=== PATIENT | female | born 2000 | race Caucasian/White ===

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

== ENCOUNTER → 2018-08-20 11:53 | Day surgery (SDC) | payer BC, MEDICAID ==
[~2018-08-20 11:53] MED LIST: Buffered Lidocaine 1% SYRIN* 1 ML/SYRINGE INTRADERM ONE; Famotidine IV* 10 MG/ML 2 ML (20 mg) IV ONE; Famotidine IV* 10 MG/ML 2 ML (20 mg) ONE; KETAMINE HCL* 50 MG/ML 10 ML VIAL ONE; Lactated Ringers 1000 ML Bag* 1,000 ML IV SCH; Lidocaine 2% PF * 5 ML VIAL ONE; Midazolam* 1 MG/ML 2 ML VIAL (2 MG) ONE; Naloxone* 0.4 MG/ML 1 ML VIAL IV PRN; Ondansetron INJ* 2 MG/ML VIAL IV PRN; Propofol* 1,000 MG/100 ML BTL ONE; Propofol* 10 MG/ML 20 ML BTL ONE; Rocuronium* 10 MG/ML VIAL ONE; Succinylcholine* 20 MG/ML 10 ML VIAL ONE; Sugammadex * 500 MG/5 ML VIAL IV PUSH ONE
[2018-08-20 16:04] VITALS: BP 131/73
== END | disposition home or self-care (01) ==
LOC: EDSTATUS 08-15 08:00 → OR 11:53
PROVIDERS: ATTEND Radiology Diagnostic Radiology
DX: Z43.1 Encounter for attention to gastrostomy (principal); F84.2 Rett's syndrome; K31.84 Gastroparesis; F41.9 Anxiety disorder, unspecified; G82.50 Quadriplegia, unspecified
CPT/HCPCS: 36415; 49440; 49446; 84702; C1769; J0330; J2250; J2704; Q9967

== ENCOUNTER → 2018-11-20 11:33 | Day surgery (SDC) | payer BC, MEDICAID ==
[~2018-11-20 11:33] MED LIST changes: -Famotidine IV* 10 MG/ML 2 ML (20 mg) IV ONE; -Famotidine IV* 10 MG/ML 2 ML (20 mg) ONE; +Iohexol 300* (CONTRAST) 10 ML SDV ONE; -Ondansetron INJ* 2 MG/ML VIAL IV PRN; -Propofol* 1,000 MG/100 ML BTL ONE; -Succinylcholine* 20 MG/ML 10 ML VIAL ONE; -Sugammadex * 500 MG/5 ML VIAL IV PUSH ONE; +fentaNYL* 50 MCG/ML 2 ML VIAL (100 MCG VIAL) ONE
[2018-11-20 14:42] VITALS: BP 119/62
== END | disposition home or self-care (01) ==
LOC: OR 11:33
PROVIDERS: ATTEND Radiology Diagnostic Radiology
DX: Z43.1 Encounter for attention to gastrostomy (principal); F84.2 Rett's syndrome; K21.9 Gastro-esophageal reflux disease without esophagitis; G82.50 Quadriplegia, unspecified; G40.909 Epilepsy, unspecified, not intractable, without status epilepticus
CPT/HCPCS: 49452; J2250; J2704; J3010; Q9965; Q9967

== ENCOUNTER 2019-01-01 12:20 | Day surgery (SDC) | payer BC, MEDICAID ==
[~2019-01-01 12:20] MED LIST changes: -Iohexol 300* (CONTRAST) 10 ML SDV ONE; -KETAMINE HCL* 50 MG/ML 10 ML VIAL ONE; -Lidocaine 2% PF * 5 ML VIAL ONE; -Midazolam* 1 MG/ML 2 ML VIAL (2 MG) ONE; -Naloxone* 0.4 MG/ML 1 ML VIAL IV PRN; -Propofol* 10 MG/ML 20 ML BTL ONE; -Rocuronium* 10 MG/ML VIAL ONE; -fentaNYL* 50 MCG/ML 2 ML VIAL (100 MCG VIAL) ONE
[2019-01-01] MEDS ORDERED: Buffered Lidocaine 1% SYRIN* 1 ML/SYRINGE INTRADERM ONE (13:24)
[2019-01-01] MEDS ORDERED: Succinylcholine* 20 MG/ML 10 ML VIAL ONE (13:39)
[2019-01-01] MEDS ORDERED: Rocuronium* 10 MG/ML VIAL ONE (13:39)
[2019-01-01] MEDS ORDERED: fentaNYL* 50 MCG/ML 2 ML VIAL (100 MCG VIAL) ONE (13:39)
[2019-01-01] MEDS ORDERED: Propofol* 10 MG/ML 20 ML BTL ONE (13:39)
[2019-01-01] MEDS ORDERED: Midazolam* 1 MG/ML 2 ML VIAL (2 MG) ONE (13:39)
[2019-01-01] MEDS ORDERED: Propofol* 500 MG/50 ML BTL ONE (13:40)
[2019-01-01] MEDS ORDERED: Ondansetron INJ* 2 MG/ML VIAL IV PRN (16:19)
[2019-01-01] MEDS ORDERED: fentaNYL* 50 MCG/ML 2 ML VIAL (100 MCG VIAL) IV PRN (16:19)
[2019-01-01] MEDS ORDERED: Naloxone* 0.4 MG/ML 1 ML VIAL IV PRN (16:19)
[2019-01-01 16:59] VITALS: BP 132/82
== END 2019-01-01 17:04 | disposition home or self-care (01) ==
LOC: OR 12:20
PROVIDERS: ATTEND Radiology Diagnostic Radiology
DX: Z43.1 Encounter for attention to gastrostomy (principal); F84.2 Rett's syndrome; R13.10 Dysphagia, unspecified; G24.8 Other dystonia
CPT/HCPCS: 49452; C1769; J0330; J2250; J2704; J3010; Q9967

== ENCOUNTER 2019-01-30 17:31 | Emergency (ER) | payer BC, MEDICAID ==
--- OUTSIDE RECORDS SUMMARY | 2019-01-30 17:59 | XMS REPORT | Continuity of Care Document ---
:2000 External Reference #:[id number] Author Name Bright Schreiber M.D. Address [address] [address] Care Team Providers Name Role Phone Lay Loza M.D. Primary Care Physician Unavailable Payers Date Identification Numbers Payment Provider Subscriber Policy Number: [id number] [place] molly Butler PayID: [id number] [address] [place] [address] Policy Number: [id number] Medicaid/I Porfirio Butler Group Name: 1 2 Insurance Primary PayID: [id number] [address] [place] [address] Problems Active Problems Provider Date Chronic otitis externa Bright Schreiber M.D. Onset: 12/08/2015 Family History Date Family Member(s) Observation Comments General Allergies General Asthma General Migraine Social History Type Date Description Comments Sex Unknown Tobacco Use Start: Unknown Patient has never smoked Smoking Status Reviewed: 01/13/19 Patient has never smoked Free Text Home is smoke free Allergies, Adverse Reactions, Alerts Active Allergies Reaction Severity Comments Date Reglan 12/08/2015 Demerol 12/08/2015 Carnitor 12/08/2015 Inactive Allergies Augmentin 12/08/2015 Carnitor 12/08/2015 Medications Active Medications SIG Qnty Indications Ordering Provider Date Loratadine Childrens 10 ml per tube 360ml Bright Walton 01/14/2019 daily Ashu Schreiber 5mg/5ML Solution Ciprodex 4 drops in left 15ml H60.62 Bright Walton 05/07/2017 0.3-0.1% ear twice a day to Ashu Schreiber Suspension be given by nurse Olopatadine HCL 1 drop in each eye 15ml H10.13 Bright Walton 05/07/2017 0.1% two times per day Ashu Schreiber Solution as needed Clotrimazole/Betamet apply to lips two 45gm K13.0 Bright Walton 12/05/2016 hasone Dipropionate times per day Ashu Schreiber until healed to be 1-0.05% Cream applined by nurse Cefjules give 4 milliliters Uphoff, 12/01/2015 250mg/5ML By G-Tube twice a Dionne [place]field Suspension Rec day for 10 days Acetaminophen as needed Uphoff, 500mg Dionne MEricD. Capsules Prevacid Solutab 1 by mouth every Uphoff, 30mg day Dionne M.D. Tablets Dispers Melatonin ER 1 by mouth every Uphoff, 3mg at bedtime as Dionne M.D. Tablets ER needed Tizanidine HCL As directed Uphoff, 2mg Dionne MEricD. Capsules Bromocriptine as directed Uphoff, Mesylate Dionne MEricDEric 2.5mg Tablets Gabapentin 1 cap by mouth Uphoff, 300mg three times a day Dionne MEricDEric Capsules Ortho-Cyclen (28) As directed Uphoff, Dionne MEricDEric 0.25-35mg-mcg Tablets Saline As directed Uphoff, 2300-700mg Dionne KnoxDEric Packet Ibuprofen As directed Uphoff, 100mg/5ML Dionne KnoxDEric Suspension Emoquette Uphoff, Dionne MEricDEric 0.15-30mg-mcg Tablets Nystatin 1 milliliters 60units Bright Walton squirted into Ashu Schreiber [id number]/ML mouth four times a Suspension day until clear for 3 days, to max of 14 days Jevity 1.2 Bebeto as directed Unknown Liquid Propranolol HCL Unknown 10mg Tablets Propranolol HCL Unknown 10mg Tablets Tobii Dynavox As directed Uphoff, 15 Dionne M.DEric Alprazolam 1 by mouth every Uphoff, 0.25mg night at bedtime, Dionne Wakefield Tablets may increase to 2 if needed Citalopram As directed Uphoff, Hydrobromide Dionne M.Robert 10mg/5ML Solution Polyethylene Glycol 1 by mouth every Uphoff, 3350 day Dionne Garcia.Robert 3350NF Packet Hydrocodone 7.5 hydrocodone by Uphoff, Bitartrate/Acetamino mouth every 4 Dionne M.DEric phen hours as needed 7.5-325mg/15ML pain Solution Gaviscon as needed for acid Uphoff, ingigestion Dionne Garcia.Robert 95-358mg/15ML Suspension Ranitidine HCL as directed Uphoff, Dionne M.DEirc 15mg/ml Syrup Polyvitamin As directed Uphoff, 35mg/ml Dionne [place]field Solution Fleet Liquid As directed Uphoff, Glycerin Dionne Wakefield Suppositories 5.4GM/Dose Enema Estarylla As directed Uphoff, Dionne MYanique 0.25-35mg-mcg Tablets Baclofen 4 times daily Uphoff, 15mg Tablets Dionne M.DEric Simethicone As directed Uphoff, 125mg Dionne [place] Chewtabs Clonazepam As directed Uphoff, 0.25mg Dionne MYanique Tablets Dispers Benefiber As directed Uphoff, Chewtabs Dionne MYanique Milk Of Magnesia As directed Uphoff, Dionne MYanique 7.75% Suspension History Medications Ciprodex 4 drops in left 15ml H60.62 Bright Walton 12/05/2016 - 0.3-0.1% ear twice a day Ashu Schreiber 05/06/2017 Suspension to be given by nurse Mometasone Furoate 2 sprays to each 3units J30.9 Bright Walton 03/13/2016 - nostril daily Ashu Schreiber 01/14/2019 50mcg/Act Suspension Mometasone Furoate mix 50:50 with 60ml H60.62 Bright Walton 12/08/2015 - olive oil and Ashu Schreiber 12/05/2016 0.1% Solution instill 5 drops in left ear three times per week. Ciprodex instill 5 drops Uphoff, Dionne 12/01/2015 - 0.3-0.1% into left ear M.DEric 12/05/2016 Suspension twice a day for 1 week Pediasure Peptide As directed Uphoff, Dionne - 1.0 Bebeto M.D. 01/07/2018 Liquid Loratadine 10 ml per tube 360ml Uphoff, Dionne - daily M.D. 01/14/2019 5mg/5ML Solution Folic Acid As directed Upho, [facility] - 1mg M.D. 12/06/2016 Tablets Vital Signs Date Vital Result Comment 01/07/2018 3:43pm Weight 90.00 lb Weight 40.824 kg Height 59 inches 4'11" Height in cm's 149.9 cm BMI (Body Mass Index) 18.2 kg/m2 Body Mass Index Percentile 8 % 05/07/2017 3:54pm Respiratory Rate 17 /min Weight 91.00 lb Weight 41.278 kg Height 59 inches 4'11" Height in cm's 149.9 cm BMI (Body Mass Index) 18.4 kg/m2 Body Mass Index Percentile 10 % 01/02/2017 11:07am Weight 91.00 lb Weight 41.278 kg Height 59 inches 4'11" Height in cm's 149.9 cm BMI (Body Mass Index) 18.4 kg/m2 Body Mass Index Percentile 11 % 12/05/2016 10:35am BP Systolic 104 mmHg BP Diastolic 78 mmHg Heart Rate 85 /min Weight 91.00 lb Weight 41.278 kg Height 59 inches 4'11" Height in cm's 149.9 cm BMI (Body Mass Index) 18.4 kg/m2 Body Mass Index Percentile 11 % 03/13/2016 3:52pm Respiratory Rate 17 /min Weight 83.00 lb Weight 37.649 kg 12/08/2015 8:37am BP Systolic 98 mmHg BP Diastolic 63 mmHg Heart Rate 73 /min Respiratory Rate 17 /min Weight 83.12 lb Weight 37.706 kg Results Test Date Facility Test Result H/L Range Note Laboratory test 12/05/2016 [facility] Fungus Smear SEE RESULT 1 finding c/o [place] [address] [phone] 1 SEE RESULT BELOW Name: PORFIRIO BUTLER : [address]: Bright Schreiber MD Acct: [id number] Unit: [id number] AGE: 16 Location: [facility] Re12/05/16 SEX: F Status: REG REF SPEC: [id number] EMA: 12/05/16-[address]: Bright Schreiber MD REQ: [id number] RECD: 12/05/16 STATUS: COMP _ SOURCE: RESP SPDESC: ORDERED: Fungal Smear COMMENTS: oral swab [id number] Procedure Result Reported Site Fungal Smear Final 12/06/16- 0738 ML Fungal Findings Negative Preparation By Direct Smear * ML - MAIN LAB ([facility]) . END OF REPORT * ML=Testing performed at Main Lab DEPARTMENT OF PATHOLOGY, [address] [place] [address] Marty Nguyen M.D. Director [facility] # [id number] Encounters Type Date Location Provider Dx Diagnosis Office Visit 01/14/2019 [place] Bright Walton H10.13 Acute atopic 3:15p 07/23/07 Ashu Schreiber conjunctivitis, bilateral J30.9 Allergic rhinitis, unspecified Office Visit 01/07/2018 [place],After Bright Walton H60.62 Unspecified 3:15p 07/23/07 Ashu Schreiber chronic otitis externa, left ear K13.0 Diseases of lips Office Visit 05/07/2017 [place],After Bright Walton H6Gin.62 Unspecified 3:45p 07/23/07 Ashu Schreiber chronic otitis externa, left ear K13.0 Diseases of lips H10.13 Acute atopic conjunctivitis, bilateral Office Visit 01/02/2017 [place],After Bright Walton H60.62 Unspecified 11:00a 07/23/07 Ashu Schreiber chronic otitis externa, left ear K13.0 Diseases of lips Office Visit 12/05/2016 [place],After Bright Walton H60.62 Unspecified 10:30a 07/23/07 Ashu Schreiber chronic otitis externa, left ear B37.0 Candidal stomatitis K13.0 Diseases of lips Office Visit 03/13/2016 [place],After Bright Walton H60.62 Unspecified 3:45p 07/23/07 Ashu Schreiber chronic otitis externa, left ear J30.9 Allergic rhinitis, unspecified Office Visit 12/08/2015 [place],After Bright Walton H60.62 Unspecified 2:30p 07/23/07 Asuh Schreiber chronic otitis externa, left ear
[2019-01-30] MEDS ORDERED: NS 0.9% 1000 ML** 1,000 ML IV ONE (19:23)
--- NOTE | 2019-01-30 20:48 | ED ---
GI/ HPI - HPI Summary HPI Summary: Patient with history of GJ tube for years presents for GJ tube that has fallen out today. Patient was fed through tube earlier today prior to tube coming out. Denies any other symptoms pain or injury. - History of Current Complaint Chief Complaint: EDGeneral Time Seen by Provider: 01/30/19 19:10 Stated Complaint: FEEDING TUBE CAME OUT PER MOM Hx Obtained From: Family/State [employer] Hx Last Menstrual Period: 02/09/16 Onset/Duration: Started Hours Ago Current Severity: None Pain Intensity: 0 Associated Signs and Symptoms: Positive: Negative Aggravating Factor(s): Nothing - Allergy/Home Medications Allergies/Adverse Reactions: Allergies Allergy/AdvReac Type Severity Reaction Status Date / Time meperidine [From Demerol] Allergy Severe See Comment Verified 01/31/19 12:05 metoclopramide [From Reglan] Allergy Severe See Comment Verified 01/31/19 12:05 levocarnitine [From Carnitor] AdvReac Constipatio Verified 01/31/19 12:05 n sucrose [From Carnitor] AdvReac Constipatio Verified 01/31/19 12:05 n PMH/Surg Hx/FS Hx/Imm Hx Endocrine/Hematology History: Denies: Hx Anticoagulant Therapy Cardiovascular History: Reports: Hx Hypertension - Autonomic dystonia-flight or fight-BP,tachycardic, sweating Denies: Other Cardiovascular Problems/Disorders Respiratory History: Reports: Other Respiratory Problems/Disorders - Hx of Pneumonia-aspirated a few times GI History: Reports: Hx Gastroesophageal Reflux Disease, Other GI Disorders - G Tube-Gastroparesis, Constipation-G tube clogs-replaced History: Reports: Other Problems/Disorders - Incontinent, wears diapers, history of UTIs Musculoskeletal History: Reports: Hx Scoliosis - had multiple surgeries, Other Musculoskeletal History - Muscle contractures-wears braces Sensory History: Reports: Other Sensory Impairments Denies: Hx Contacts or Glasses, Hx Hearing Aid Opthamlomology History: Reports: Other Sensory Impairments Denies: Hx Contacts or Glasses Neurological History: Reports: 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 Heel and hamstring release bilalteral 2004. G tube - J Tube- with numerous replacement Hx Anesthesia Reactions: No Infectious Disease History: No Infectious Disease History: Denies: Traveled Outside the [place] in Last 30 Days - Family History Known Family History: Positive: Other - Noncontributory Family History: Parent's deny relevant FHx - Social History Alcohol Use: None Substance Use Type: Reports: None Smoking Status (MU): Never Smoked Tobacco Have You Smoked in the Last Year: No Review of Systems Constitutional: Negative Eyes: Negative ENT: Negative Cardiovascular: Negative Respiratory: Negative Gastrointestinal: Negative Genitourinary: Negative Musculoskeletal: Negative Skin: Negative Neurological: Negative Psychological: Normal All Other Systems Reviewed And Are Negative: Yes Physical Exam - Summary Physical Exam Summary: GJ tube no longer in place. Stoma clean and dry and intact. No erythema, foul odor, purulent discharge. Triage Information Reviewed: Yes Vital Signs On Initial Exam: Initial Vitals Temp Pulse Resp BP Pulse Ox 98.5 F 100 18 124/92 96 01/30/19 17:45 01/30/19 17:45 01/30/19 17:45 01/30/19 17:45 01/30/19 17:45 Vital Signs Reviewed: Yes Appearance: Positive: Well-Appearing Skin: Positive: Warm Head/Face: Positive: Normal Head/Face Inspection Eyes: Positive: Normal Neck: Positive: Supple Respiratory/Lung Sounds: Positive: Clear to Auscultation Cardiovascular: Positive: Normal Abdomen Description: Positive: Nontender Musculoskeletal: Positive: Normal Neurological: Positive: Normal Psychiatric: Positive: Normal AVPU Assessment: Alert - [place] Coma Scale Best Eye Response: 4 - Spontaneous Best Motor Response: 6 - Obeys Commands Best Verbal Response: 5 - Oriented Coma Scale Total: 15 Diagnostics - Vital Signs Vital Signs Temp Pulse Resp BP Pulse Ox 01/30/19 17:45 98.5 F 100 18 124/92 96 - Laboratory Lab Statement: Any lab studies that have been ordered have been reviewed, and results considered in the medical decision making process. GIGU Course/Dx - Course Course Of Treatment: Patient with history of GJ tube for years presents for GJ tube that has fallen out today. Patient was fed through tube earlier today prior to tube coming out. Denies any other symptoms pain or injury. Vital signs within normal limits. GJ tube was replaced by Dr. Brito. Discussed patient with Dr. Argueta and attending Dr. Mckeon who both stated to leave the stoma alone. Family and patient to follow-up in clinic tomorrow with Dr. Brito so GJ tube could be replaced under anesthesia. Patient hydrated with 1 L normal saline IV fluid. - Diagnoses Provider Diagnoses: Encounter for gastrojejunal (GJ) tube placement Discharge - Sign-Out/Discharge Documenting (check all that apply): Patient Departure Patient Received Moderate/Deep Sedation with Procedure: No - Discharge Plan Condition: Stable Disposition: HOME Referrals: Lay Loza MD [Primary Care Provider] - Additional Instructions: Follow-up with Dr. Brito tomorrow morning for replacement of J-tube. Return to the ED for any new or worsening symptoms - Billing Disposition and Condition Condition: STABLE Disposition: Home
[2019-01-30 21:49] VITALS: BP 100/81
== END 2019-01-30 21:49 | disposition home or self-care (01) ==
LOC: ED 17:31
DX: Z43.1 Encounter for attention to gastrostomy (principal); I10 Essential (primary) hypertension; K21.9 Gastro-esophageal reflux disease without esophagitis; Z88.5 Allergy status to narcotic agent; Z88.8 Allergy status to other drugs, medicaments and biological substances
CPT/HCPCS: 96360; 99282

== ENCOUNTER 2019-01-31 11:56 | Day surgery (SDC) | payer BC, MEDICAID ==
--- NOTE | 2019-01-31 13:56 | ED ---
GI/ HPI - HPI Summary HPI Summary: Patient is a 18-year-old female who presents emergency department for dislodge GJ that occurred yesterday. 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 Pt. typically has tube replaced by Dr. Chapman under sedation. Pt. was seen in the ED yesterday and got IV fluids. Apparently IR was not able to replace tube at that time. Mother notes decreased urination. Sxs are mild in severity. No current modifying factors. 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 Hx Last Menstrual Period: 02/09/16 Pain Intensity: 5 - Allergy/Home Medications Allergies/Adverse Reactions: Allergies Allergy/AdvReac Type Severity Reaction Status Date / Time meperidine [From Demerol] Allergy Severe See Comment Verified 01/31/19 12:05 metoclopramide [From Reglan] Allergy Severe See Comment Verified 01/31/19 12:05 levocarnitine [From Carnitor] AdvReac Constipatio Verified 01/31/19 12:05 n sucrose [From Carnitor] AdvReac Constipatio Verified 01/31/19 12:05 n PMH/Surg Hx/FS Hx/Imm Hx Previously Healthy: Yes Cardiovascular History: Reports: Hx Hypertension - Autonomic dystonia-flight or fight-BP,tachycardic, sweating Denies: Other Cardiovascular Problems/Disorders Respiratory History: Reports: Other Respiratory Problems/Disorders - Hx of Pneumonia-aspirated a few times GI History: Reports: Hx Gastroesophageal Reflux Disease, Other GI Disorders - G Tube-Gastroparesis, Constipation-G tube clogs-replaced History: Reports: Other Problems/Disorders - Incontinent, wears diapers, history of UTIs Musculoskeletal History: Reports: Hx Scoliosis - had multiple surgeries, Other Musculoskeletal History - Muscle contractures-wears braces Sensory History: Reports: Other Sensory Impairments Denies: Hx Contacts or Glasses, Hx Hearing Aid Opthamlomology History: Reports: Other Sensory Impairments Denies: Hx Contacts or Glasses Neurological History: Reports: 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 Heel and hamstring release bilalteral 2004. G tube - J Tube- with numerous replacement Hx Anesthesia Reactions: No Infectious Disease History: No Infectious Disease History: Denies: Traveled Outside the [place] in Last 30 Days - Family History Known Family History: Positive: Other - Noncontributory Family History: Parent's deny relevant FHx - Social History Occupation: Disabled Alcohol Use: None Substance Use Type: Reports: None Smoking Status (MU): Never Smoked Tobacco Have You Smoked in the Last Year: No Review of Systems - ROS Summary Review of Systems Summary: Hx limited from pt. due to pt. being nonverbal. Gastrointestinal: Negative Genitourinary: Other - decreased urination All Other Systems Reviewed And Are Negative: No Physical Exam Triage Information Reviewed: Yes Vital Signs On Initial Exam: Initial Vitals Temp Pulse Resp BP Pulse Ox 99 F 140 20 132/101 99 01/31/19 12:00 01/31/19 12:00 01/31/19 12:00 01/31/19 12:00 01/31/19 12:00 Vital Signs Reviewed: Yes Appearance: Positive: Well-Appearing - Pt. sitting in her wheelchair in NAD. Mother present. Skin: Positive: Warm, Dry Head/Face: Positive: Normal Head/Face Inspection Eyes: Positive: Normal, EOMI Diagnostics - Vital Signs Vital Signs Temp Pulse Resp BP Pulse Ox 01/31/19 12:00 99 F 140 20 132/101 99 - Laboratory Lab Statement: Any lab studies that have been ordered have been reviewed, and results considered in the medical decision making process. GIGU Course/Dx - Course Assessment/Plan: Pt. presenting for GJ tube replacement. Pt. does not take anything PO including medications. Accucheck in 90's. Pt. started on IV fluids. Dr. Chapman able to replace tube today. Pt. taken to IR from ER. - Diagnoses Provider Diagnoses: Encounter for gastrojejunal (GJ) tube placement Discharge - Sign-Out/Discharge Documenting (check all that apply): Patient Departure Patient Received Moderate/Deep Sedation with Procedure: No - Discharge Plan Condition: Good Disposition: HOME - Billing Disposition and Condition Condition: GOOD Disposition: Home
[2019-01-31] MEDS ORDERED: NS 0.9% 500 ML* 500 ML IV ONE (14:16)
[2019-01-31] MEDS ORDERED: fentaNYL* 50 MCG/ML 2 ML VIAL (100 MCG VIAL) ONE (16:05)
[2019-01-31] MEDS ORDERED: Propofol* 10 MG/ML 20 ML BTL ONE (16:06)
[2019-01-31] MEDS ORDERED: Midazolam* 1 MG/ML 2 ML VIAL (2 MG) ONE (16:06)
[2019-01-31] MEDS ORDERED: Lidocaine 2% PF * 5 ML VIAL ONE (16:06)
[2019-01-31] MEDS ORDERED: Naloxone* 0.4 MG/ML 1 ML VIAL IV PRN (18:37)
[2019-01-31] MEDS ORDERED: Acetaminophen IV 1GM/100ML * 10 MG/ML VIAL IVPB ONE (18:37)
[2019-01-31] MEDS ORDERED: Acetaminophen IV 1GM/100ML * 100 ML ONE (18:39)
[2019-01-31 18:51] VITALS: BP 114/81
== END 2019-01-31 19:20 | disposition home or self-care (01) ==
LOC: ED 11:56 → OR 17:03
PROVIDERS: ATTEND Radiology Diagnostic Radiology
DX: T85.528A Displacement of other gastrointestinal prosthetic devices, implants and grafts, initial encounter (principal); F84.2 Rett's syndrome; R13.10 Dysphagia, unspecified; K21.9 Gastro-esophageal reflux disease without esophagitis; G82.50 Quadriplegia, unspecified; G24.8 Other dystonia
CPT/HCPCS: 49440; 99282; J2250; J2704; J3010

== ENCOUNTER → 2019-04-30 | Day surgery (SDC) | payer BC, MEDICAID ==
[~2019-04-30] MED LIST changes: +Acetaminophen TAB* 325 MG PO PRN; +Ketorolac INJ* 30 MG/ML 1 ML VIAL IV PRN; +Lidocaine 1% INJ* 10 MG/ML 30 ML SDV ONE; +Midazolam* 1 MG/ML 5 ML VIAL (5 MG) ONE; +Naloxone* 0.4 MG/ML 1 ML VIAL IV PRN; +Propofol* 10 MG/ML 20 ML BTL ONE; +Rocuronium* 10 MG/ML VIAL ONE; +fentaNYL* 50 MCG/ML 2 ML VIAL (100 MCG VIAL) IV PRN; +fentaNYL* 50 MCG/ML 2 ML VIAL (100 MCG VIAL) ONE
[2019-04-30 15:53] VITALS: BP 100/82
== END | disposition home or self-care (01) ==
LOC: OR 12:25
PROVIDERS: ATTEND Radiology Diagnostic Radiology
DX: Z43.1 Encounter for attention to gastrostomy (principal); F84.2 Rett's syndrome; K21.9 Gastro-esophageal reflux disease without esophagitis; K31.84 Gastroparesis; F41.9 Anxiety disorder, unspecified; G24.8 Other dystonia
CPT/HCPCS: 49452; J2250; J2704; J3010; Q9967

== ENCOUNTER 2019-07-02 10:23 | Day surgery (SDC) | payer BC, MEDICAID ==
[~2019-07-02 10:23] MED LIST changes: -Acetaminophen TAB* 325 MG PO PRN; -Ketorolac INJ* 30 MG/ML 1 ML VIAL IV PRN; -Lidocaine 1% INJ* 10 MG/ML 30 ML SDV ONE; -Midazolam* 1 MG/ML 5 ML VIAL (5 MG) ONE; -Naloxone* 0.4 MG/ML 1 ML VIAL IV PRN; -Propofol* 10 MG/ML 20 ML BTL ONE; -Rocuronium* 10 MG/ML VIAL ONE; -fentaNYL* 50 MCG/ML 2 ML VIAL (100 MCG VIAL) IV PRN; -fentaNYL* 50 MCG/ML 2 ML VIAL (100 MCG VIAL) ONE
[2019-07-02] MEDS ORDERED: Midazolam* 1 MG/ML 2 ML VIAL (2 MG) ONE ×2 (11:28)
[2019-07-02] MEDS ORDERED: Propofol* 10 MG/ML 20 ML BTL ONE (11:28)
[2019-07-02] MEDS ORDERED: Lidocaine 1% INJ* 10 MG/ML 30 ML SDV ONE (12:34)
[2019-07-02] MEDS ORDERED: Propofol* 500 MG/50 ML BTL ONE (12:51)
[2019-07-02] MEDS ORDERED: Naloxone* 0.4 MG/ML 1 ML VIAL IV PRN (13:02)
[2019-07-02] MEDS ORDERED: Ondansetron INJ* 2 MG/ML VIAL IV PRN (13:02)
[2019-07-02 13:56] VITALS: BP 96/82
== END 2019-07-02 14:29 | disposition home or self-care (01) ==
LOC: OR 10:23
PROVIDERS: ATTEND Radiology Diagnostic Radiology
DX: F84.2 Rett's syndrome (principal); G80.0 Spastic quadriplegic cerebral palsy; K21.9 Gastro-esophageal reflux disease without esophagitis; G40.909 Epilepsy, unspecified, not intractable, without status epilepticus; F41.9 Anxiety disorder, unspecified
CPT/HCPCS: 49452; J2250; J2704

== ENCOUNTER 2019-07-03 00:09 | Emergency (ER) | payer BC, MEDICAID ==
--- OUTSIDE RECORDS SUMMARY | 2019-07-03 00:26 | XMS REPORT | Continuity of Care Document ---
:2000 External Reference #:[id number] Author Name Marnie Moraes MD (transmitted by agent of provider Ashley Vargas) Address [address], [place] [address] Care Team Providers Name Role Phone Artie Vargas MD - Physical Care Team Information Certified Medical Dosimetrist [phone] Medicine & Rehabilitation Bright Schreiber MD - Care Team Information Certified Medical Dosimetrist [phone] Otolaryngology Problems Active Problems Provider Date Rett's disorder Chris Johnson M.D. Onset: 04/06/2015 Tetraplegia Lay Loza M.D. Onset: 06/30/2018 Epilepsy Lay Loza M.D. 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 Onset: 06/30/2018 Gastroesophageal reflux disease Sulaiman Lim NP Onset: 03/19/2018 Constipation Sulaiman Lim NP Onset: 03/19/2018 Spasticity Sulaiman Lim NP Onset: 03/19/2018 Anxiety Sulaiman Lim NP Onset: 03/19/2018 Social History Type Date Description Comments Sex Unknown ETOH Use Never used alcohol Tobacco Use Start: Unknown Patient has never smoked Recreational Drug Use Denies Drug Use Smoking Status Reviewed: 06/26/19 Patient has never smoked Allergies, Adverse Reactions, Alerts Active Allergies Reaction Severity Comments Date Carnitor 04/06/2015 Demerol 04/06/2015 Reglan 04/06/2015 Medications Active Medications SIG Qnty Indications Ordering Provider Date Emoquette Take 1 Tablet By 112tabs Sulaiman Lim NP 05/21/2019 Mouth Once Daily 0.15-30mg-mcg as Directed Tablets Nursing Care 116 hours/week F84.2 Lay Loza, 01/15/2019 M.D. U-Bag Urine pediatric Use for 5units R50.9 Sulaiman Lim NP 10/28/2018 Specimen collection of Reject Opener And Filler/Adhesive/ urine sample [facility] Jevity 1.2 Bebeto/Fiber 240 cc in 760 cc Lay Dago, 06/30/2018 Dilute water at 110 cc/hr M.D. With Water Liquid qam 480 cc in 520 cc water at 110 cc/hr qpm Alprazolam one tab via g tube 90tabs Sulaiman Lim NP 03/26/2018 0.25mg Tablets three times daily as needed for sleep anxiety and agitation Olopatadine HCL 1 drop in eyes twice Unknown 0.1% Solution a day Nystatin apply to affected 15units Sulaiman Lim NP 311856Kehy/GM Cream area twice a day Baclofen take 3 tabs every 8 AliciaArtie M., 10mg Tablets hours as needed for MD muscle spasm Melatonin 1 tablet daily Unknown 3mg Tablets ER Glycerin (Adult) by way of rectum Unknown 2gm every other day Suppository Erythromycin Unknown Ethylsuccinate 200mg/5ML Suspension Rec Citalopram Hydrobromide 12.5ml (25mg) by 375ml Lay Cotton, mouth once daily M.D. 10mg/5ML Solution Flonase Allergy Relief spray 1 spray in Unknown each nostril twice 50mcg/Act Suspension daily as needed Emoquette take 1 tablet by 112tabs Sulaiman Lim NP 0.15-3mg-mcg Tablets mouth once daily as directed Propranolol HCL one tablet up to 30tabs Unknown 10mg Tablets three times a day as needed for anxiety. Loratadine 10ml daily Unknown 5mg/5ML Syrup Tizanidine HCL 1 tab three times Unknown 2mg Tablets daily as needed (s/s autonomic dysreflexia) Ciprodex instill 4 drops into Bright Schreiber, 0.3-0.1% Suspension affected ears twice MD daily for 7 days prn Gabapentin give 12ml by mouth Unknown 250mg/5ML Solution once daily at bedtime Bromocriptine Mesylate 1-2 tabs by mouth Artie Vargas, 2.5mg daily MD Tablets Gaviscon 15 mls every 4-6 Unknown 95-358mg/15ML hours prn Suspension Polyethylene Glycol 3350 1-4 teaspoons prn Unknown 3350NF Packet Acetaminophen as needed Unknown 500mg Capsules Saline Enema prn Unknown Enema Benefiber 1 tsp by mouth daily Unknown as needed Clonazepam 1 PO tid Unknown 0.25mg Tablets Dispers Prevacid Solutab 1 by mouth bid Unknown 30mg Tablets Dispers Ranitidine HCL 10mls by mouth tid Unknown 15mg/ml Syrup Simethicone one PO tid Unknown 125mg Capsules Immunizations CPT Code Status Date Vaccine Reaction Lot # [id number] Given 06/26/2019 Influenza Virus Vaccine, no immediate reaction. [id number] Quadrivalent, Split, dg Preservative Free [id number] Given 04/11/2018 Influenza Virus Vaccine, [id number] Quadrivalent, Split, Preservative Free Vital Signs Date Vital Result Comment 06/26/2019 4:28pm Height 57 inches 4'9" Weight 87.00 lb Heart Rate 78 /min BP Systolic Sitting 92 mmHg BP Diastolic Sitting 58 mmHg Body Temperature 97.1 F BMI (Body Mass Index) 18.8 kg/m2 04/24/2019 4:27pm Height 57 inches 4'9" Weight 84.00 lb Heart Rate 82 /min BP Systolic 108 mmHg BP Diastolic 73 mmHg Body Temperature 97.7 F BMI (Body Mass Index) 18.2 kg/m2 Results Test Acquired Date Facility Test Result H/L Range Note Order 04/24/2019 [facility] In-House EKG Reviewed by Tirso Olivera CBC No Diff 02/06/2019 [facility] White Blood 7.1 10^3/uL Normal 3.5-10.[address] [place] [address] [phone] Red Blood Count 4.79 10^6/uL Normal 3.70-4.87 Hemoglobin 14.5 g/dL Normal 12.0-16.0 Hematocrit 43 % Normal 35-47 Mean Corpuscular Volume 90 fL Normal 80-97 Mean Corpuscular Hemoglobin 30 pg Normal 27-31 Mean Corpuscular HGB Conc 34 g/dL Normal 31-36 Red Cell Distribution Width 12 % Normal 10-15 Platelet Count 410 10^3/uL Normal 150-450 Mean Platelet Volume 8.8 fL Normal 7.4-10.4 Inr/Protime 02/06/2019 [facility] Inr 0.92 Normal 0.82-1.[address] [place] [address] [phone] Laboratory test 02/06/2019 [facility] Partial 32.5 Normal 26.0 -38.[address] [place] [address] Time PTT [phone] Laboratory test 01/31/2019 [facility] Point of 91 mg/dL Normal 70-[address] [place] [address] Glucose [phone] 1 Standard intensity warfarin therapeutic range: 2.0-3.0 High intensity warfarin therapeutic range: 2.5-3.5 2 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: [id number] Procedures Date Code Description Status 04/24/2019 65758 EKG Tracing & Interpretation Completed Medical Devices Description No Information Available Encounters Type Date Location Provider Dx Diagnosis Office Visit 04/24/2019 [facility] Internal Sulaiman Lim NP Z01.818 Encounter for other 4:20p Medicine - Ccmob preprocedural examination Z43.1 Encounter for attention to gastrostomy F84.2 Rett's syndrome 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 F41.9 Anxiety disorder, unspecified Office Visit 03/10/2019 4:20p [facility] Internal Sulaiman Lim, Z01.818 Encounter for other Medicine - PLASTICS PROCESS HAND preprocedural Ccmob examination F84.2 Rett's syndrome 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 F41.9 Anxiety disorder, unspecified Office Visit 02/06/2019 4:20p [facility] Internal Sulaiman Lim, Z01.818 Encounter for other Medicine - PLASTICS PROCESS HAND preprocedural Ccmob examination 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 F84.2 Rett's syndrome F41.9 Anxiety disorder, unspecified Assessments Date Code Description Provider 06/26/2019 Z01.818 Encounter for other preprocedural examination Marnie Moraes MD 06/26/2019 F84.2 Rett's syndrome Marnie Moraes MD 06/26/2019 F41.9 Anxiety disorder, unspecified Marnie Moraes MD 06/26/2019 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 Marnie Moraes MD 04/24/2019 Z01.818 Encounter for other preprocedural examination Sulaiman Raphael , PLASTICS PROCESS HAND 04/24/2019 Z43.1 Encounter for attention to gastrostomy Sulaiman Raphael, PLASTICS PROCESS HAND 04/24/2019 F84.2 Rett's syndrome Sulaiman Raphael, PLASTICS PROCESS HAND 04/24/2019 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 Sulaiman Raphael, PLASTICS PROCESS HAND 04/24/2019 F41.9 Anxiety disorder, unspecified Sulaiman Raphael, PLASTICS PROCESS HAND 03/10/2019 Z01.818 Encounter for other preprocedural examination Sulaiman Raphael , PLASTICS PROCESS HAND 03/10/2019 F84.2 Rett's syndrome Sulaiman Raphael, PLASTICS PROCESS HAND 03/10/2019 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 Sulaiman Raphael, PLASTICS PROCESS HAND 03/10/2019 F41.9 Anxiety disorder, unspecified Sulaiman Raphael, PLASTICS PROCESS HAND 02/06/2019 Z01.818 Encounter for other preprocedural examination Sulaiman Raphael , PLASTICS PROCESS HAND 02/06/2019 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
--- NOTE | 2019-07-03 01:58 | ED ---
GI/ HPI - HPI Summary HPI Summary: 19-year-old female presents with abdominal distention today. She had G-tube placed by Dr. Chapman today. she needs a replacement every 6 months due to her formula. They went home and she had different feeding tube and they gave her her formula. she started develop increasing abd distention afterwards. She was not passing any gas. When she arrived here and was moved into stretch she started to pass gas. she is not showing any signs of pain anymore per patients. They deny any fevers. No vomiting. patient is nonverbal so history is provided by parents. she has history of rett syndrome. - History of Current Complaint Chief Complaint: EDAbdPain Time Seen by Provider: 07/03/19 01:15 Stated Complaint: VOMITING PER MOTHER Hx Last Menstrual Period: 02/09/16 Pain Intensity: 5 - Allergy/Home Medications Allergies/Adverse Reactions: Allergies Allergy/AdvReac Type Severity Reaction Status Date / Time meperidine [From Demerol] Allergy Severe See Comment Verified 07/03/19 00:17 metoclopramide [From Reglan] Allergy Severe See Comment Verified 07/03/19 00:17 adhesive Allergy SKIN Verified 07/03/19 00:17 SENSITIVE levocarnitine [From Carnitor] AdvReac Constipatio Verified 07/03/19 00:17 n sucrose [From Carnitor] AdvReac Constipatio Verified 07/03/19 00:17 n EKG TABS Allergy SKIN Uncoded 07/03/19 00:17 SENSITIVE PMH/Surg Hx/FS Hx/Imm Hx Endocrine/Hematology History: Denies: Hx Bone Marrow Disease, Hx Sickle Cell Disease, Hx Anemia Cardiovascular History: Reports: Hx Hypertension - HX OF Autonomic dystonia- flight or fight-elevated BP, tachycardic, sweating Denies: Other Cardiovascular Problems/Disorders Respiratory History: Reports: Other Respiratory Problems/Disorders - Hx of Pneumonia-aspirated a few times GI History: Reports: Hx Gastroesophageal Reflux Disease - ON ROUTINE MEDICATION FOR, Other GI Disorders - G Tube-Gastroparesis, Constipation- DAILY SUPPOSITORY History: Denies: Hx Kidney Infection, Hx Kidney Stones, Other Problems/Disorders Musculoskeletal History: Reports: Hx Scoliosis - had multiple surgeries, Other Musculoskeletal History - Muscle contractures-wears braces-LEGS AND WRISTS/HANDS Sensory History: Reports: Other Sensory Impairments Denies: Hx Cataracts, Hx Contacts or Glasses, Hx Glaucoma, Hx Hearing Aid Opthamlomology History: Reports: Other Sensory Impairments Denies: Hx Cataracts, Hx Contacts or Glasses, Hx Glaucoma Neurological History: Reports: 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 Heel and hamstring release bilalteral 2004. G tube - J Tube- with numerous replacements Hx Anesthesia Reactions: Yes - SEVERE DIARRHEA AFTER LAST TWO TIMES WITH ANESTHESIA - Immunization History Immunizations Up to Date: Yes Infectious Disease History: No Infectious Disease History: Denies: Traveled Outside the [place] in Last 30 Days - Family History Known Family History: Positive: Other - Noncontributory Family History: Parent's deny relevant FHx - Social History Alcohol Use: None Substance Use Type: Reports: None Smoking Status (MU): Never Smoked Tobacco Have You Smoked in the Last Year: No Review of Systems Negative: Fever Positive: Other - distented abd All Other Systems Reviewed And Are Negative: Yes Physical Exam Triage Information Reviewed: Yes Vital Signs On Initial Exam: Initial Vitals Temp Pulse Resp BP Pulse Ox 97.2 F 118 20 96/76 100 07/03/19 00:10 07/03/19 00:10 07/03/19 00:10 07/03/19 00:10 07/03/19 00:10 Vital Signs Reviewed: Yes Appearance: Positive: Well-Appearing Skin: Positive: Warm, Dry Head/Face: Positive: Normal Head/Face Inspection Eyes: Positive: Normal, Conjunctiva Clear ENT: Positive: Pharynx normal Respiratory/Lung Sounds: Positive: Clear to Auscultation, Breath Sounds Present Cardiovascular: Positive: Normal, RRR Abdomen Description: Positive: Nontender, Soft, Other: - g-tube in place,. Negative: Distended, Guarding Bowel Sounds: Positive: Present Musculoskeletal: Positive: Normal Neurological: Positive: Normal Psychiatric: Positive: Normal Procedures - Sedation Patient Received Moderate/Deep Sedation with Procedure: No Diagnostics - Vital Signs Vital Signs Temp Pulse Resp BP Pulse Ox 07/03/19 00:10 97.2 F 118 20 96/76 100 - Laboratory Lab Statement: Any lab studies that have been ordered have been reviewed, and results considered in the medical decision making process. - Radiology abd Radiology Interpretation Completed By: ED Physician Summary of Radiographic Findings: g-tube in placed GIGU Course/Dx - Course Course Of Treatment: 19-year-old female presents with abdominal distention today. She had G-tube placed by Dr. Chapman today. she needs a replacement every 6 months due to her formula. They went home and she had different feeding tube and they gave her her formula. she started develop increasing abd distention afterwards. She was not passing any gas. When she arrived here and was moved into stretch she started to pass gas. she is not showing any signs of pain anymore per patients. They deny any fevers. No vomiting. patient is nonverbal so history is provided by parents. On exam abdomen is soft nontender. Not distended. She did belch on room. X-ray shows G-tube in place. Told to follow up primary. Patient mom understands and agrees the plan. - Diagnoses Differential Diagnoses - Female: Bowel Obstruction, Other - g-t tube dysfunction Provider Diagnoses: Abdominal distention Discharge ED - Sign-Out/Discharge Documenting (check all that apply): Patient Departure - Discharge Plan Condition: Good Disposition: HOME Referrals: Lay Loza MD [Primary Care Provider] - Additional Instructions: follow up with primary within 5 days return to ED if develop any new or worsening symptoms - Billing Disposition and Condition Condition: GOOD Disposition: Home
[2019-07-03 03:48] VITALS: BP 97/62
== END 2019-07-03 02:50 | disposition home or self-care (01) ==
LOC: ED 00:09
DX: R14.0 Abdominal distension (gaseous) (principal); I10 Essential (primary) hypertension; K21.9 Gastro-esophageal reflux disease without esophagitis; F84.2 Rett's syndrome; G82.50 Quadriplegia, unspecified; F41.9 Anxiety disorder, unspecified; Z93.1 Gastrostomy status; Z79.899 Other long term (current) drug therapy; Z88.5 Allergy status to narcotic agent; Z88.8 Allergy status to other drugs, medicaments and biological substances
CPT/HCPCS: 74018; 99282

== ENCOUNTER 2019-09-03 11:26 | Day surgery (SDC) | payer BC, MEDICAID ==
[~2019-09-03 11:26] MED LIST changes: +HYDROmorphone INJ1* 1 MG/ML SYRINGE IV PRN; +Naloxone* 0.4 MG/ML 1 ML VIAL IV PRN; +Ondansetron INJ* 2 MG/ML VIAL IV PRN; +PROCHLORPERAZINE INJ 5 MG/ML 2 ML VIAL IV PRN
[2019-09-03] MEDS ORDERED: Buffered Lidocaine 1% SYRIN* 1 ML/SYRINGE INTRADERM ONE (12:12)
[2019-09-03] MEDS ORDERED: Propofol* 10 MG/ML 20 ML BTL ONE (14:22)
[2019-09-03 16:15] VITALS: BP 107/65
== END 2019-09-03 15:45 | disposition home or self-care (01) ==
LOC: OR 11:26
PROVIDERS: ATTEND Radiology Diagnostic Radiology
DX: Z43.1 Encounter for attention to gastrostomy (principal); F84.2 Rett's syndrome; G90.4 Autonomic dysreflexia; K21.9 Gastro-esophageal reflux disease without esophagitis; G40.909 Epilepsy, unspecified, not intractable, without status epilepticus; G80.0 Spastic quadriplegic cerebral palsy
CPT/HCPCS: 49452; J2704; Q9967

== ENCOUNTER → 2019-11-19 | Day surgery (SDC) | payer BC, MEDICAID ==
[~2019-11-19] MED LIST changes: +Buffered Lidocaine 1% SYRIN 1 ml INTRADERM ONE; -Buffered Lidocaine 1% SYRIN* 1 ML/SYRINGE INTRADERM ONE; -HYDROmorphone INJ1* 1 MG/ML SYRINGE IV PRN; -Lactated Ringers 1000 ML Bag* 1,000 ML IV SCH; +Lactated Ringers 1000 ml BAG 1,000 ML IV SCH; +Lidocaine 2% PF 5 ML VIAL ONE; +Midazolam 2 mg/2 ml VIAL 1 mg/ml 2 ml VIAL (2 mg) ONE; +Naloxone 0.4 mg VIAL 0.4 mg/ml 1 ml VIAL IV PRN; -Naloxone* 0.4 MG/ML 1 ML VIAL IV PRN; -Ondansetron INJ* 2 MG/ML VIAL IV PRN; -PROCHLORPERAZINE INJ 5 MG/ML 2 ML VIAL IV PRN; +Propofol 10 MG/ML 20 ML BTL ONE; +fentaNYL 100 mcg/2 ml 50 MCG/ML VIAL ONE
[2019-11-19 12:38] VITALS: BP 111/75
[2019-11-19 12:53] LABS: Mean Platelet Volume 8.4 fL (7.4-10.4); Platelet Count 396 10^3/uL (150-450)
[2019-11-19 13:02] LABS: Activated Partial Thrombo Time 33.2 seconds (26.0-38.0); INR 0.94 (0.82-1.09)
== END | disposition home or self-care (01) ==
LOC: OR 11:36
PROVIDERS: ATTEND Nurse Practitioner Family

== ENCOUNTER 2023-08-03 06:33 | Inpatient (IN) ==
[2023-08-03] MEDS ORDERED: Albuterol 2.5mg/3 ml (0.083%) NEB.SOLN INH ONE (06:50)
[2023-08-03 07:29] LABS: ABS Lymphocytes 0.2 10^3/uL (1.0-4.8); ABS Monocytes 0.2 10^3/uL (0.0-0.9); ABS Neutrophils 6.4 10^3/uL (1.5-7.6); Eosinophil % 0.1 %; Hematocrit 38.3 % (35-45); Hemoglobin 13.3 g/dL (11.5-14.3); Lymphocyte % 3.6 %; Mean Corpuscular Hemoglobin 30.1 pg (27-33); Mean Corpuscular Hgb Conc 34.6 g/dL (31-36); Mean Platelet Volume 7.7 fL (7.5-11.2); Platelet Count 318 10^3/uL (150-450); White Blood Count 6.9 10^3/uL (3.8-11.8)
[2023-08-03 07:51] LABS: ALT 21 U/L (7-52); Albumin/Globulin Ratio 1.3 (1-3); Alkaline Phosphatase 74 U/L (35-149); Anion Gap 11 mmol/L (2-16); Blood Urea Nitrogen 9 mg/dL (6-24); CO2 Carbon Dioxide 24 mmol/L (22-32); Calcium 8.8 mg/dL (8.6-10.3); Chloride 95 mmol/L (101-111); Creatinine, Serum < 0.30 mg/dL (0.51-0.95); Globulin 3.2 g/dL (2-4); Glucose 116 mg/dL (70-100); Sodium 130 mmol/L (135-145); Total Bilirubin 0.5 mg/dL (0.2-1.0); Total Protein 7.2 g/dL (6.4-8.9); eGFR CKD-EPI 150.9 (>60)
[2023-08-03] MEDS ORDERED: Levalbuterol 1.25MG/0.5ML NEB.SOL INH ONE (08:08)
[2023-08-03] MEDS ORDERED: Levalbuterol 1.25MG/0.5ML NEB.SOL ONE (08:09)
[2023-08-03] MEDS ORDERED: Lactated Ringers 1000 ml BAG 1,000 ML IV ONE ×3 (08:26→20:00)
[2023-08-03] MEDS ORDERED: Azithromycin 500 mg/250 ml NS 500 MG/250 ML BAG IVPB ONE (09:11)
[2023-08-03] MEDS ORDERED: cefTRIAXone 1 gm/50 mL D5W 1 GM/50 ML BAG IV ONE (09:41)
[2023-08-03 09:58] LABS: Potassium Redraw 3.6 mmol/L (3.5-5.0)
[2023-08-03] MEDS ORDERED: Polyethylene Glycol 3350 17 GM PACKET FEED TUBE PRN (10:45)
[2023-08-03] MEDS ORDERED: Acetaminophen IV 1 GM/100ML 500 MG/50 ML BAG IV ONE ×3 (10:45→17:45)
[2023-08-03] MEDS ORDERED: DESOGESTREL ETHINYL ESTRADIOL SCH (10:45)
[2023-08-03] MEDS ORDERED: Sodium Phosphate ADULT ENEMA 133 ML BTL PR PRN (10:45)
[2023-08-03] MEDS ORDERED: NS 0.9% IV ONE (11:00)
[2023-08-03] MEDS ORDERED: REMDESIVIR IV ONE (11:00)
[2023-08-03] MEDS ORDERED: Al Hydrox/Mg Hydrox/Simet LIQ 30 ML UDC FEED TUBE PRN (11:16)
[2023-08-03] MEDS ORDERED: Metoprolol Tartrate 5 mg VIAL 5 ml VIAL (1 mg/ml) IV ONE (12:33)
[2023-08-03] MEDS ORDERED: Iohexol 350 (CONTRAST) 500 ML MDV IV ONE (12:39)
[2023-08-03] MEDS: Levalbuterol 0.63MG/3ML NEB UNIT OF USE INH SCH ×4 (13:37→23:37)
[2023-08-03] MEDS: Citalopram SOLN ORALSYR 2 MG/ML G TUBE SCH (13:41)
[2023-08-03] MEDS: Lansoprazole SUSP ORALSYR 3 MG/ML FEED TUBE SCH ×2 (13:41→22:04)
[2023-08-03 14:05] LABS: C Reactive Protein 3.51 mg/L (<8.01)
[2023-08-03] MEDS: Simethicone SUSP ORALSYR 66.66 MG/ML FEED TUBE SCH ×2 (14:38→22:04)
[2023-08-03] MEDS: Enoxaparin 40 MG/0.4 ML SYR SUBCUT SCH (16:23)
[2023-08-03] MEDS: ISIBLOOM G TUBE SCH (22:04)
[2023-08-04] MEDS: Levalbuterol 0.63MG/3ML NEB UNIT OF USE INH SCH ×3 (02:57→19:38)
[2023-08-04] MEDS: Acetaminophen IV 1 GM/100ML 500 MG/50 ML BAG IV PRN (03:13)
[2023-08-04 07:14] LABS: ABS Lymphocytes 0.4 10^3/uL (1.0-4.8); ABS Monocytes 0.1 10^3/uL (0.0-0.9); ABS Neutrophils 3.2 10^3/uL (1.5-7.6); ABS Nucleated RBC 0.01 10^3/ul; Hematocrit 32.5 % (35-45); Hemoglobin 11.3 g/dL (11.5-14.3); Lymphocyte % 10.9 %; Mean Corpuscular Hemoglobin 30.2 pg (27-33); Mean Corpuscular Hgb Conc 34.9 g/dL (31-36); Mean Corpuscular Volume 86.4 fL (80-97); Mean Platelet Volume 7.6 fL (7.5-11.2); Nucleated Red Blood Cells % 0.2 %/100WBC (0.0-0.8); Platelet Count 240 10^3/uL (150-450); Red Blood Count 3.76 10^6/uL (3.63-4.92); Red Cell Distribution Width 12.1 % (12-17); White Blood Count 3.7 10^3/uL (3.8-11.8)
[2023-08-04 08:17] LABS: ALT 30 U/L (7-52); AST 56 U/L (13-39); Albumin 3.1 g/dL (3.2-5.2); Albumin/Globulin Ratio 1.2 (1-3); Alkaline Phosphatase 54 U/L (35-149); Anion Gap 7 mmol/L (2-16); Blood Urea Nitrogen 5 mg/dL (6-24); CO2 Carbon Dioxide 29 mmol/L (22-32); Calcium 7.9 mg/dL (8.6-10.3); Chloride 93 mmol/L (101-111); Creatinine, Serum < 0.30 mg/dL (0.51-0.95); Globulin 2.6 g/dL (2-4); Glucose 87 mg/dL (70-100); Magnesium 1.6 mg/dL (1.9-2.7); Potassium 3.3 mmol/L (3.5-5.0); Sodium 129 mmol/L (135-145); Total Bilirubin 0.4 mg/dL (0.2-1.0); Total Protein 5.7 g/dL (6.4-8.9); eGFR CKD-EPI 150.9 (>60)
[2023-08-04] MEDS ORDERED: NS 0.9% IV SCH (09:00)
[2023-08-04] MEDS ORDERED: cefTRIAXone 1 gm/50 mL D5W 1 GM/50 ML BAG IV SCH (09:00)
[2023-08-04] MEDS ORDERED: REMDESIVIR IV SCH (09:00)
[2023-08-04] MEDS: cefTRIAXone 1 gm/50 mL D5W 1 GM/50 ML BAG IV SCH (09:15)
[2023-08-04] MEDS ORDERED: Glycerin ADULT 2.4 gm SUPP PR PRN (09:15)
[2023-08-04] MEDS: Simethicone SUSP ORALSYR 66.66 MG/ML FEED TUBE SCH ×3 (09:17→22:09)
[2023-08-04] MEDS: Lansoprazole SUSP ORALSYR 3 MG/ML FEED TUBE SCH ×2 (09:20→22:09)
[2023-08-04] MEDS: Citalopram SOLN ORALSYR 2 MG/ML G TUBE SCH (10:49)
[2023-08-04] MEDS ORDERED: Magnesium Sulf 4 GM/100 ML IV 4,000 MG/100 ML BAG IVPB ONE (10:51)
[2023-08-04] MEDS ORDERED: Levalbuterol 0.63MG/3ML NEB UNIT OF USE INH SCH (13:00)
[2023-08-04] MEDS: Enoxaparin 40 MG/0.4 ML SYR SUBCUT SCH (15:55)
[2023-08-04] MEDS: ISIBLOOM G TUBE SCH (22:09)
[2023-08-05] MEDS: OSELTAMIVIR 6 MG/ML SCH ×2 (02:08→22:36)
[2023-08-05 06:36] LABS: ABS Lymphocytes 0.9 10^3/uL (1.0-4.8); ABS Monocytes 0.1 10^3/uL (0.0-0.9); ABS Neutrophils 2.5 10^3/uL (1.5-7.6); ABS Nucleated RBC 0.01 10^3/ul; Hematocrit 36.5 % (35-45); Hemoglobin 12.7 g/dL (11.5-14.3); Lymphocyte % 25.4 %; Mean Corpuscular Hemoglobin 30.1 pg (27-33); Mean Corpuscular Hgb Conc 34.9 g/dL (31-36); Mean Corpuscular Volume 86.1 fL (80-97); Mean Platelet Volume 7.6 fL (7.5-11.2); Nucleated Red Blood Cells % 0.2 %/100WBC (0.0-0.8); Platelet Count 240 10^3/uL (150-450); Red Blood Count 4.24 10^6/uL (3.63-4.92); Red Cell Distribution Width 12.3 % (12-17); White Blood Count 3.5 10^3/uL (3.8-11.8)
[2023-08-05 06:57] LABS: ALT 38 U/L (7-52); AST 76 U/L (13-39); Albumin 3.3 g/dL (3.2-5.2); Albumin/Globulin Ratio 1.2 (1-3); Alkaline Phosphatase 58 U/L (35-149); Anion Gap 9 mmol/L (2-16); Blood Urea Nitrogen 5 mg/dL (6-24); CO2 Carbon Dioxide 32 mmol/L (22-32); Calcium 7.9 mg/dL (8.6-10.3); Chloride 97 mmol/L (101-111); Creatinine, Serum < 0.30 mg/dL (0.51-0.95); Globulin 2.7 g/dL (2-4); Glucose 76 mg/dL (70-100); Sodium 138 mmol/L (135-145); Total Bilirubin 0.5 mg/dL (0.2-1.0); eGFR CKD-EPI 150.9 (>60)
[2023-08-05] MEDS: Levalbuterol 0.63MG/3ML NEB UNIT OF USE INH SCH ×3 (07:21→20:24)
[2023-08-05] MEDS: cefTRIAXone 1 gm/50 mL D5W 1 GM/50 ML BAG IV SCH (10:00)
[2023-08-05] MEDS: Simethicone SUSP ORALSYR 66.66 MG/ML FEED TUBE SCH ×3 (10:01→22:09)
[2023-08-05] MEDS: Citalopram SOLN ORALSYR 2 MG/ML G TUBE SCH (10:03)
[2023-08-05] MEDS: Glycerin ADULT 2.4 gm SUPP PR SCH (10:03)
[2023-08-05] MEDS: Lansoprazole SUSP ORALSYR 3 MG/ML FEED TUBE SCH ×2 (11:23→22:09)
[2023-08-05] MEDS ORDERED: Potassium Chloride LIQUID 20 MEQ/15 ML LIQUID PO ONE (11:51)
[2023-08-05] MEDS: Acetaminophen IV 1 GM/100ML 500 MG/50 ML BAG IV PRN (12:23)
[2023-08-05] MEDS: KCL 20 MEQ/100 ML IVPREMIX 20 MEQ/100 ML BAG IV SCH ×2 (14:56→17:05)
[2023-08-05] MEDS: Enoxaparin 40 MG/0.4 ML SYR SUBCUT SCH (14:57)
[2023-08-05] MEDS: ISIBLOOM G TUBE SCH (22:11)
[2023-08-05] MEDS: Oseltamivir SUSP ORALSYR 6 MG/ML SCH (22:11)
[2023-08-06 06:50] LABS: ABS Lymphocytes 1.3 10^3/uL (1.0-4.8); ABS Monocytes 0.2 10^3/uL (0.0-0.9); ABS Neutrophils 1.1 10^3/uL (1.5-7.6); Eosinophil % 0.2 %; Hematocrit 35.5 % (35-45); Hemoglobin 12.2 g/dL (11.5-14.3); Lymphocyte % 50.4 %; Mean Corpuscular Hemoglobin 30.1 pg (27-33); Mean Corpuscular Hgb Conc 34.4 g/dL (31-36); Mean Corpuscular Volume 87.7 fL (80-97); Mean Platelet Volume 7.9 fL (7.5-11.2); Nucleated Red Blood Cells % 0.2 %/100WBC (0.0-0.8); Platelet Count 259 10^3/uL (150-450); Red Blood Count 4.05 10^6/uL (3.63-4.92); Red Cell Distribution Width 12.3 % (12-17); White Blood Count 2.6 10^3/uL (3.8-11.8)
[2023-08-06 07:55] LABS: ALT 32 U/L (7-52); AST 59 U/L (13-39); Albumin/Globulin Ratio 1.2 (1-3); Alkaline Phosphatase 55 U/L (35-149); Anion Gap 5 mmol/L (2-16); Blood Urea Nitrogen 4 mg/dL (6-24); CO2 Carbon Dioxide 33 mmol/L (22-32); Calcium 7.9 mg/dL (8.6-10.3); Chloride 99 mmol/L (101-111); Creatinine, Serum < 0.30 mg/dL (0.51-0.95); Globulin 2.6 g/dL (2-4); Glucose 80 mg/dL (70-100); Magnesium 1.9 mg/dL (1.9-2.7); Sodium 137 mmol/L (135-145); Total Bilirubin 0.4 mg/dL (0.2-1.0); Total Protein 5.6 g/dL (6.4-8.9); eGFR CKD-EPI 150.9 (>60)
[2023-08-06] MEDS: cefTRIAXone 1 gm/50 mL D5W 1 GM/50 ML BAG IV SCH (09:22)
[2023-08-06] MEDS: Citalopram SOLN ORALSYR 2 MG/ML G TUBE SCH (10:48)
[2023-08-06] MEDS: Simethicone SUSP ORALSYR 66.66 MG/ML FEED TUBE SCH ×3 (10:48→21:30)
[2023-08-06] MEDS: Lansoprazole SUSP ORALSYR 3 MG/ML FEED TUBE SCH ×2 (10:48→21:30)
[2023-08-06] MEDS: Enoxaparin 40 MG/0.4 ML SYR SUBCUT SCH (14:17)
[2023-08-06] MEDS: Oseltamivir SUSP ORALSYR 6 MG/ML SCH (21:30)
[2023-08-06] MEDS: ISIBLOOM G TUBE SCH (21:34)
[2023-08-07] MEDS: Albuterol 2.5mg/3 ml (0.083%) NEB.SOLN INH PRN ×2 (04:57→18:56)
[2023-08-07 06:56] LABS: ABS Lymphocytes 1.1 10^3/uL (1.0-4.8); ABS Monocytes 0.3 10^3/uL (0.0-0.9); ABS Neutrophils 1.7 10^3/uL (1.5-7.6); ABS Nucleated RBC 0.01 10^3/ul; Eosinophil % 0.6 %; Hematocrit 37.5 % (35-45); Hemoglobin 12.7 g/dL (11.5-14.3); Lymphocyte % 36.7 %; Mean Corpuscular Hemoglobin 29.5 pg (27-33); Mean Corpuscular Volume 86.7 fL (80-97); Mean Platelet Volume 7.7 fL (7.5-11.2); Nucleated Red Blood Cells % 0.2 %/100WBC (0.0-0.8); Platelet Count 278 10^3/uL (150-450); Red Blood Count 4.33 10^6/uL (3.63-4.92); Red Cell Distribution Width 12.2 % (12-17); White Blood Count 3.1 10^3/uL (3.8-11.8)
[2023-08-07 07:19] LABS: Anion Gap 9 mmol/L (2-16); Blood Urea Nitrogen 4 mg/dL (6-24); CO2 Carbon Dioxide 29 mmol/L (22-32); Calcium 8.1 mg/dL (8.6-10.3); Chloride 97 mmol/L (101-111); Creatinine, Serum < 0.30 mg/dL (0.51-0.95); Glucose 81 mg/dL (70-100); Magnesium 1.7 mg/dL (1.9-2.7); Phosphorus 2.1 mg/dL (2.5-5.0); Potassium 3.6 mmol/L (3.5-5.0); Sodium 135 mmol/L (135-145); eGFR CKD-EPI 150.9 (>60)
[2023-08-07] MEDS ORDERED: Magnesium Sulfate 2 gm BAG 2 GM/50 ML BAG IVPB ONE (07:21)
[2023-08-07] MEDS ORDERED: Albuterol/Ipratropium NEB.SOL (2.5/0.5 MG) 3 ML NEB.SOLN INH ONE (08:34)
[2023-08-07] MEDS: cefTRIAXone 1 gm/50 mL D5W 1 GM/50 ML BAG IV SCH (09:53)
[2023-08-07] MEDS: Simethicone SUSP ORALSYR 66.66 MG/ML FEED TUBE SCH ×3 (10:42→20:22)
[2023-08-07] MEDS: Lansoprazole SUSP ORALSYR 3 MG/ML FEED TUBE SCH ×2 (10:43→20:22)
[2023-08-07] MEDS: Citalopram SOLN ORALSYR 2 MG/ML G TUBE SCH (10:43)
[2023-08-07] MEDS: Glycerin ADULT 2.4 gm SUPP PR SCH (13:23)
[2023-08-07] MEDS: Enoxaparin 40 MG/0.4 ML SYR SUBCUT SCH (15:26)
[2023-08-07] MEDS: Oseltamivir SUSP ORALSYR 6 MG/ML SCH ×2 (16:08→20:22)
[2023-08-07] MEDS: guaiFENesin 100 mg/5 ml LIQ unit dose cup PO PRN (16:08)
[2023-08-07] MEDS: ISIBLOOM G TUBE SCH (20:21)
[2023-08-08] MEDS: guaiFENesin 100 mg/5 ml LIQ unit dose cup PO PRN ×2 (05:56→14:01)
[2023-08-08 06:02] LABS: ABS Lymphocytes 0.8 10^3/uL (1.0-4.8); ABS Monocytes 0.2 10^3/uL (0.0-0.9); ABS Neutrophils 1.7 10^3/uL (1.5-7.6); ABS Nucleated RBC 0.01 10^3/ul; Eosinophil % 0.1 %; Hematocrit 36.7 % (35-45); Hemoglobin 12.8 g/dL (11.5-14.3); Mean Corpuscular Hgb Conc 34.8 g/dL (31-36); Mean Corpuscular Volume 86.1 fL (80-97); Mean Platelet Volume 7.9 fL (7.5-11.2); Nucleated Red Blood Cells % 0.2 %/100WBC (0.0-0.8); Platelet Count 262 10^3/uL (150-450); Red Blood Count 4.26 10^6/uL (3.63-4.92); Red Cell Distribution Width 12.1 % (12-17); White Blood Count 2.8 10^3/uL (3.8-11.8)
[2023-08-08 06:20] LABS: Anion Gap 6 mmol/L (2-16); Blood Urea Nitrogen 4 mg/dL (6-24); CO2 Carbon Dioxide 28 mmol/L (22-32); Calcium 7.9 mg/dL (8.6-10.3); Chloride 97 mmol/L (101-111); Creatinine, Serum < 0.30 mg/dL (0.51-0.95); Glucose 86 mg/dL (70-100); Potassium 3.2 mmol/L (3.5-5.0); Sodium 131 mmol/L (135-145); eGFR CKD-EPI 150.9 (>60)
[2023-08-08] MEDS ORDERED: Potassium Chloride LIQUID 20 MEQ/15 ML LIQUID PO ONE (07:23)
[2023-08-08] MEDS: cefTRIAXone 1 gm/50 mL D5W 1 GM/50 ML BAG IV SCH (10:26)
[2023-08-08] MEDS: Simethicone SUSP ORALSYR 66.66 MG/ML FEED TUBE SCH ×3 (10:30→21:41)
[2023-08-08] MEDS: Lansoprazole SUSP ORALSYR 3 MG/ML FEED TUBE SCH ×2 (10:30→21:40)
[2023-08-08] MEDS: Citalopram SOLN ORALSYR 2 MG/ML G TUBE SCH (10:30)
[2023-08-08] MEDS: Oseltamivir SUSP ORALSYR 6 MG/ML SCH ×2 (10:34→21:41)
[2023-08-08] MEDS: KCL 20 MEQ/100 ML IVPREMIX 20 MEQ/100 ML BAG IV SCH ×2 (11:52→14:01)
[2023-08-08] MEDS: Enoxaparin 40 MG/0.4 ML SYR SUBCUT SCH (14:02)
[2023-08-08] MEDS: Acetaminophen IV 1 GM/100ML 500 MG/50 ML BAG IV PRN (18:10)
[2023-08-08] MEDS: ISIBLOOM G TUBE SCH (21:41)
[2023-08-09 06:28] LABS: Hematocrit 36.5 % (35-45); Hemoglobin 12.5 g/dL (11.5-14.3); Mean Corpuscular Hgb Conc 34.3 g/dL (31-36); Mean Corpuscular Volume 87.2 fL (80-97); Platelet Count 230 10^3/uL (150-450); Red Blood Count 4.19 10^6/uL (3.63-4.92); Red Cell Distribution Width 12.3 % (12-17); White Blood Count 2.5 10^3/uL (3.8-11.8)
[2023-08-09 07:20] LABS: ABS Lymphocytes 1.3 10^3/uL (1.0-4.8); ABS Monocytes 0.4 10^3/uL (0.0-0.9); ABS Neutrophils 0.7 10^3/uL (1.5-7.6); ABS Nucleated RBC 0.01 10^3/ul; Eosinophil % 1.7 %; Lymphocyte % 52.7 %; Nucleated Red Blood Cells % 0.4 %/100WBC (0.0-0.8)
[2023-08-09 08:15] LABS: Anion Gap 7 mmol/L (2-16); Blood Urea Nitrogen 4 mg/dL (6-24); CO2 Carbon Dioxide 29 mmol/L (22-32); Calcium 8.2 mg/dL (8.6-10.3); Chloride 100 mmol/L (101-111); Creatinine, Serum < 0.30 mg/dL (0.51-0.95); Glucose 79 mg/dL (70-100); Magnesium 2.2 mg/dL (1.9-2.7); Potassium 4.2 mmol/L (3.5-5.0); Sodium 136 mmol/L (135-145); eGFR CKD-EPI 150.9 (>60)
[2023-08-09] MEDS: Lansoprazole SUSP ORALSYR 3 MG/ML FEED TUBE SCH (09:30)
[2023-08-09] MEDS: Oseltamivir SUSP ORALSYR 6 MG/ML SCH (09:30)
[2023-08-09] MEDS: Simethicone SUSP ORALSYR 66.66 MG/ML FEED TUBE SCH (09:30)
[2023-08-09] MEDS: Citalopram SOLN ORALSYR 2 MG/ML G TUBE SCH (09:32)
[2023-08-09] MEDS: Glycerin ADULT 2.4 gm SUPP PR SCH (09:32)
[2023-08-09] MEDS: guaiFENesin 100 mg/5 ml LIQ unit dose cup PO PRN (12:17)
[2023-08-09] MEDS: Enoxaparin 40 MG/0.4 ML SYR SUBCUT SCH (12:21)
[2023-08-09 13:08] LABS: ABS Lymphocytes 1.7 10^3/uL (1.0-4.8); ABS Monocytes 0.3 10^3/uL (0.0-0.9); ABS Neutrophils 1.2 10^3/uL (1.5-7.6); ABS Nucleated RBC 0.01 10^3/ul; Eosinophil % 1.4 %; Hematocrit 38.7 % (35-45); Hemoglobin 13.4 g/dL (11.5-14.3); Lymphocyte % 51.7 %; Mean Corpuscular Hemoglobin 29.9 pg (27-33); Mean Corpuscular Hgb Conc 34.6 g/dL (31-36); Mean Corpuscular Volume 86.5 fL (80-97); Nucleated Red Blood Cells % 0.3 %/100WBC (0.0-0.8); Platelet Count 289 10^3/uL (150-450); Red Blood Count 4.48 10^6/uL (3.63-4.92); Red Cell Distribution Width 12.3 % (12-17); White Blood Count 3.3 10^3/uL (3.8-11.8)
[2023-08-09 14:26] VITALS: BP 99/67
== END 2023-08-09 15:25 | disposition home or self-care (01) | DRG 720 ==
LOC: ED 06:33 → EDHOLD 09:45 → SUATTDRO 09:45 → MED 15:35
PROVIDERS: ADMIT Internal Medicine; ATTEND Student in an Organized Health Care Education/Training Program